=== PATIENT | female | born 1995 | race Caucasian/White ===

== ENCOUNTER 2021-09-17 20:09 | Emergency (ER) | payer MEDICAID, SELFPAY ==
[2021-09-17 21:14] LABS: Bilirubin Neg (Negative); Blood, Urine 250 (Negative); Clarity Clear (Clear); Glucose, Urine (Dipstick) Normal (Negative); Ketone, Urine Negative (Negative); Leukocyte Negative (Negative); Nitrite Negative (Negative); Protein, Urine (Dipstick) Negative (Neg-Trace); Urobilinogen Normal mg/dL (Less than 2)
[2021-09-17 21:21] LABS: Bacteria/HPF Rare-Few HPF (None Seen); RBC/HPF 21-50 HPF (0-3); Squamous Epithelial 0-3 HPF (0-3); WBC/HPF 0-3 HPF (0-3)
[2021-09-17 21:36] LABS: #Eosinphils 0.1 10x3/uL (0.0-0.5); #Monocytes 0.6 10x3/uL (0.0-1.1); #Neutrophils 7.4 10x3/uL (1.5-8.4); %Basophils 0.3 % (0.0-2.0); %Lymphocytes 24.7 % (18.0-47.0); %Monocytes 5.8 % (0.0-10.0); %Neutrophils 67.7 % (40.0-75.0); Hemoglobin 13.2 g/dL (12.0-15.5); Mean Corpuscular HGB CONC 34.7 g/dL (32.0-36.0); Mean Corpuscular Hemoglobin 29.7 pg (27.0-33.0); Mean Corpuscular Volume 85.6 fl (81.6-98.3); Mean Platelet Volume 10.6 fl (7.4-10.4); Platelet Count 220 10x3/uL (150-450); RBC Distribution Width 11.9 % (11.5-14.5); Red Blood Cell (RBC) Count 4.44 10x6/uL (3.90-5.03)
== END 2021-09-18 00:14 | disposition home or self-care (01) ==
LOC: CSHERS 20:09
DX: O20.0 Threatened abortion (principal); Z3A.01 Less than 8 weeks gestation of pregnancy
CPT/HCPCS: 36415; 76856; 81003; 81015; 84702; 85025; 86900; 86901

== ENCOUNTER 2021-12-25 18:40 | Emergency (ER) | payer MEDICAID, OTHER ==
[2021-12-25 20:15] LABS: Bilirubin Neg (Negative); Blood, Urine Negative (Negative); Clarity Clear (Clear); Glucose, Urine (Dipstick) Normal (Negative); Ketone, Urine Negative (Negative); Leukocyte Negative (Negative); Nitrite Negative (Negative); Protein, Urine (Dipstick) Negative (Neg-Trace); Specific Gravity, Urine 1.005 (1.005-1.030); Urobilinogen Normal mg/dL (Less than 2)
[2021-12-25 20:34] LABS: #Monocytes 0.5 10x3/uL (0.0-1.1); #Neutrophils 6.2 10x3/uL (1.5-8.4); %Basophils 0.1 % (0.0-2.0); %Eosinophils 0.3 % (0.0-6.0); %Lymphocytes 5.8 % (18.0-47.0); %Neutrophils 85.7 % (40.0-75.0); Hemoglobin 10.8 g/dL (12.0-15.5); Mean Corpuscular HGB CONC 34.5 g/dL (32.0-36.0); Mean Corpuscular Hemoglobin 28.6 pg (27.0-33.0); Mean Platelet Volume 10.5 fl (7.4-10.4); Platelet Count 174 10x3/uL (150-450); RBC Distribution Width 13.2 % (11.5-14.5); Red Blood Cell (RBC) Count 3.77 10x6/uL (3.90-5.03); White Blood Cell (WBC) Count 7.3 10x3/uL (3.5-10.5)
[2021-12-25 20:51] LABS: ALT (SGPT) 26 U/L (8-55); AST (SGOT) 28 U/L (5-34); Albumin 3.6 g/dL (3.5-5.0); Alkaline Phosphatase 58 U/L (40-110); Anion Gap 12 mmol/L (10-20); BUN (Urea Nitrogen) 5 mg/dL (7.0-18.7); Bilirubin, Total 0.2 mg/dL (0.2-1.2); Calc. Creatinine Clearance 0 mL/min (70-130); Calcium 9.1 mg/dL (7.8-10.44); Carbon Dioxide 23 mmol/L (22-29); Chloride 106 mmol/L (98-107); Estimated GFR 127; Globulin 2.8 g/dL (2.4-3.5); Glucose 84 mg/dL (70-105); Potassium 4.1 mmol/L (3.5-5.1); Protein, Total 6.4 g/dL (6.0-8.3); Sodium 137 mmol/L (136-145)
[2021-12-25] MEDS ORDERED: Acetaminophen 325 MG TAB ONE (21:04)
[2021-12-25 21:31] LABS: SARS-CoV-2 NAA Rapid Test DETECTED (NotDetected)
== END 2021-12-26 00:20 | disposition home or self-care (01) ==
LOC: CSHERS 18:40
DX: O98.512 Other viral diseases complicating pregnancy, second trimester (principal); U07.1 COVID-19; O99.891 Other specified diseases and conditions complicating pregnancy; R07.89 Other chest pain; Z3A.22 22 weeks gestation of pregnancy
CPT/HCPCS: 36415; 80053; 81003; 84484; 85025; 86900; 86901; 87081; 87430; 93005; 96360; 96361

== ENCOUNTER 2022-01-13 09:27 | Emergency (ER) | payer MEDICAID, OTHER ==
[2022-01-13] MEDS ORDERED: Acetaminophen 500 MG TAB ONE (10:12)
[2022-01-13 10:23] LABS: Bilirubin Neg (Negative); Blood, Urine Negative (Negative); Clarity Clear (Clear); Glucose, Urine (Dipstick) Normal (Negative); Ketone, Urine Negative (Negative); Leukocyte Negative (Negative); Nitrite Negative (Negative); Protein, Urine (Dipstick) Negative (Neg-Trace); Urobilinogen Normal mg/dL (Less than 2)
[2022-01-13 10:26] LABS: #Eosinphils 0.2 10x3/uL (0.0-0.5); #Monocytes 0.6 10x3/uL (0.0-1.1); #Neutrophils 7.4 10x3/uL (1.5-8.4); %Basophils 0.2 % (0.0-2.0); %Eosinophils 1.6 % (0.0-6.0); %Lymphocytes 17.8 % (18.0-47.0); %Monocytes 5.8 % (0.0-10.0); %Neutrophils 74.2 % (40.0-75.0); Hemoglobin 11.4 g/dL (12.0-15.5); Mean Corpuscular HGB CONC 34.4 g/dL (32.0-36.0); Mean Corpuscular Hemoglobin 28.6 pg (27.0-33.0); Mean Corpuscular Volume 83.2 fl (81.6-98.3); Platelet Count 236 10x3/uL (150-450); RBC Distribution Width 12.9 % (11.5-14.5); Red Blood Cell (RBC) Count 3.98 10x6/uL (3.90-5.03)
[2022-01-13 10:38] LABS: ALT (SGPT) 9 U/L (8-55); AST (SGOT) 12 U/L (5-34); Albumin 3.7 g/dL (3.5-5.0); Alkaline Phosphatase 72 U/L (40-110); Anion Gap 13 mmol/L (10-20); BUN (Urea Nitrogen) 5 mg/dL (7.0-18.7); Bilirubin, Total 0.3 mg/dL (0.2-1.2); Calc. Creatinine Clearance 0 mL/min (70-130); Calcium 9.1 mg/dL (7.8-10.44); Carbon Dioxide 24 mmol/L (22-29); Chloride 106 mmol/L (98-107); Estimated GFR 129; Globulin 2.7 g/dL (2.4-3.5); Glucose 98 mg/dL (70-105); Magnesium 1.6 mg/dL (1.6-2.6); Protein, Total 6.4 g/dL (6.0-8.3); Sodium 139 mmol/L (136-145)
== END 2022-01-13 10:57 | disposition home or self-care (01) ==
LOC: CSHERS 09:27
DX: O99.891 Other specified diseases and conditions complicating pregnancy (principal); R60.0 Localized edema; Z3A.23 23 weeks gestation of pregnancy
CPT/HCPCS: 36415; 80053; 81003; 83735; 85025; 99284

== ENCOUNTER 2022-03-12 12:03 | Day surgery (SDC) | payer OTHER ==
[2022-03-12 12:34] VITALS: BMI 45.4
[2022-03-12] MEDS ORDERED: hydrALAZINE 20 MG/ML VIAL SLOW IVP PRN (13:32)
[2022-03-12] MEDS ORDERED: Acetaminophen 500 MG TAB PO SCH (13:45)
== END 2022-03-12 13:55 | disposition home or self-care (01) ==
LOC: CSHLD/OP 12:03
PROVIDERS: ATTEND Obstetrics & Gynecology
DX: O9A.213 Injury, poisoning and certain other consequences of external causes complicating pregnancy, third trimester (principal); S39.012A Strain of muscle, fascia and tendon of lower back, initial encounter; X50.0XXA Overexertion from strenuous movement or load, initial encounter; Y92.009 Unspecified place in unspecified non-institutional (private) residence as the place of occurrence of the external cause; Z3A.32 32 weeks gestation of pregnancy

== ENCOUNTER 2022-04-16 12:00 | Inpatient (IN) | payer OTHER ==
[2022-04-15 12:52] LABS: #Eosinphils 0.1 10x3/uL (0.0-0.5); #Monocytes 0.5 10x3/uL (0.0-1.1); #Neutrophils 6.7 10x3/uL (1.5-8.4); %Basophils 0.2 % (0.0-2.0); %Eosinophils 1.2 % (0.0-6.0); %Lymphocytes 17.4 % (18.0-47.0); %Monocytes 5.5 % (0.0-10.0); %Neutrophils 75.1 % (40.0-75.0); Hemoglobin 12.8 g/dL (12.0-15.5); Mean Corpuscular HGB CONC 34.8 g/dL (32.0-36.0); Mean Corpuscular Hemoglobin 28.8 pg (27.0-33.0); Mean Corpuscular Volume 82.7 fl (81.6-98.3); Mean Platelet Volume 11.1 fl (7.4-10.4); Platelet Count 182 10x3/uL (150-450); RBC Distribution Width 13.6 % (11.5-14.5); Red Blood Cell (RBC) Count 4.45 10x6/uL (3.90-5.03); White Blood Cell (WBC) Count 8.9 10x3/uL (3.5-10.5)
[2022-04-15 13:26] LABS: SARS-CoV-2 NAA Rapid Test Not Detected (NotDetected); Syphilis Antibody Nonreactive (Nonreactive); Syphilis Antibody Index 0.04 S/CO (<1.00 Non-Reactive)
[2022-04-15 13:26] LABS: HBSAg Index 0.16 S/CO (0-0.99); Hep B Surf Ag Non-Reactive S/CO (NonReactive)
[2022-04-16] MEDS ORDERED: Bicitra 30 ML UDCUP PO PRN (14:51)
[2022-04-16] MEDS ORDERED: Butorphanol Tartrate 1 MG/ML VIAL SLOW IVP PRN (14:51)
[2022-04-16] MEDS ORDERED: Ondansetron PF 4 MG/2 ML Vial IVP PRN ×2 (14:51→20:20)
[2022-04-16] MEDS ORDERED: Promethazine HCl 25 MG/ML VIAL IM PRN (14:51)
[2022-04-16] MEDS ORDERED: hydrALAZINE 20 MG/ML VIAL SLOW IVP PRN ×2 (14:51→20:20)
[2022-04-16] MEDS ORDERED: Famotidine/PF 20 mg/2ml Vial SLOW IVP PRN (14:51)
[2022-04-16] MEDS ORDERED: CEFAZOLIN 2 GM in Sodium Chloride 0.9% 100 ML IVPB SCH (15:00)
[2022-04-16] MEDS ORDERED: Lactated Ringer's 1,000 ML IV SCH (15:00)
[2022-04-16 15:28] VITALS: BMI 47.7
[2022-04-16] MEDS ORDERED: Dexmedetomidine 200 MCG/2 ML VIAL ONE (15:42)
[2022-04-16] MEDS ORDERED: Dexamethasone 4 mg/ml Vial ONE (15:59)
[2022-04-16] MEDS ORDERED: Ondansetron PF 4 MG/2 ML Vial ONE (15:59)
[2022-04-16] MEDS ORDERED: Oxytocin 10 UNITS/ML VIAL ONE (16:00)
[2022-04-16] MEDS ORDERED: Ketorolac Tromethamine 30 MG/ML VIAL ONE (16:00)
[2022-04-16] MEDS ORDERED: PHENYLEPHRINE-NS 100 MCG/ML 10 ML SYRINGE ONE (16:03)
[2022-04-16] MEDS ORDERED: Phenylephrine 40 MG/NS 250 ML 250 ML ONE (16:03)
[2022-04-16] MEDS ORDERED: Phenylephrine 10 MG/ML VIAL ONE (16:04)
[2022-04-16] MEDS ORDERED: Metoclopramide HCl 10 MG/2 ML VIAL ONE (16:55)
[2022-04-16] MEDS ORDERED: Fentanyl 100 MCG/2 ML VIAL SLOW IVP PRN (17:29)
[2022-04-16] MEDS ORDERED: Meperidine HCl/PF 25 MG/ML VIAL SLOW IVP PRN (17:29)
[2022-04-16] MEDS ORDERED: Ondansetron HCl/PF 4 MG/2 ML Vial IVP PRN (17:29)
[2022-04-16] MEDS ORDERED: Ketorolac Tromethamine 30 MG/ML VIAL IVP SCH (17:30)
[2022-04-16] MEDS ORDERED: NS w/ Oxytocin 30 units 500 ML ONE (18:01)
[2022-04-16] MEDS ORDERED: Fentanyl 100 MCG/2 ML VIAL ONE (20:08)
[2022-04-16] MEDS ORDERED: Bisacodyl 10 MG SUPP PR PRN (20:20)
[2022-04-16] MEDS ORDERED: diphenhydrAMINE 25 MG CAP PO PRN (20:20)
[2022-04-16] MEDS ORDERED: Boostrix 0.5 ML (Tdap) VIAL (>/=7 yrs of age) IM ONE (20:20)
[2022-04-16] MEDS: Ferrous Sulfate 325 MG TAB PO SCH (21:28)
[2022-04-16] MEDS: Docusate 100 MG CAP PO SCH (21:28)
[2022-04-16] MEDS ORDERED: Ibuprofen 800 MG TAB PO SCH (22:00)
[2022-04-16] MEDS: Ketorolac Tromethamine 30 MG/ML VIAL IVP PRN (23:29)
[2022-04-17] MEDS: HYDROcodone/Acetaminophen 5/325 mg Tablet PO PRN ×6 (00:24→20:15)
[2022-04-17 04:48] LABS: Hemoglobin 10.9 g/dL (12.0-15.5); Mean Corpuscular HGB CONC 34.7 g/dL (32.0-36.0); Mean Corpuscular Volume 83.5 fl (81.6-98.3); Mean Platelet Volume 11.4 fl (7.4-10.4); Platelet Count 168 10x3/uL (150-450); RBC Distribution Width 13.7 % (11.5-14.5); Red Blood Cell (RBC) Count 3.76 10x6/uL (3.90-5.03); White Blood Cell (WBC) Count 9.8 10x3/uL (3.5-10.5)
[2022-04-17] MEDS: Ketorolac Tromethamine 30 MG/ML VIAL IVP PRN (06:09)
[2022-04-17] MEDS: Docusate 100 MG CAP PO SCH ×2 (08:22→20:17)
[2022-04-17] MEDS: Prenatal Vitamin 1 TAB PO SCH (08:22)
[2022-04-17] MEDS: Ferrous Sulfate 325 MG TAB PO SCH ×2 (09:17→21:24)
[2022-04-17] MEDS: Simethicone Chewable 80 MG TAB PO PRN ×2 (10:40→20:18)
[2022-04-17] MEDS ORDERED: Ketorolac Tromethamine 30 MG/ML VIAL IVP PRN (10:45)
[2022-04-17] MEDS ORDERED: Ibuprofen 800 MG TAB PO SCH (14:00)
[2022-04-17] MEDS: Ibuprofen 800 MG TAB PO PRN (20:17)
[2022-04-18] MEDS: HYDROcodone/Acetaminophen 5/325 mg Tablet PO PRN ×5 (00:54→22:08)
[2022-04-18] MEDS: Ibuprofen 800 MG TAB PO PRN ×3 (04:15→22:07)
[2022-04-18] MEDS: Simethicone Chewable 80 MG TAB PO PRN ×3 (04:16→17:45)
[2022-04-18] MEDS: Docusate 100 MG CAP PO SCH ×2 (07:15→22:09)
[2022-04-18] MEDS: Prenatal Vitamin 1 TAB PO SCH (07:15)
[2022-04-18] MEDS: Ferrous Sulfate 325 MG TAB PO SCH ×2 (07:16→22:12)
[2022-04-18] MEDS: Cyclobenzaprine 10 MG TAB PO PRN ×2 (16:04→22:24)
[2022-04-19] MEDS: HYDROcodone/Acetaminophen 5/325 mg Tablet PO PRN ×4 (03:52→12:47)
[2022-04-19] MEDS: Simethicone Chewable 80 MG TAB PO PRN ×3 (03:52→12:48)
[2022-04-19] MEDS: Ibuprofen 800 MG TAB PO PRN (05:11)
[2022-04-19 07:53] VITALS: BP 98/50; TEMP 97.9
[2022-04-19] MEDS: Ferrous Sulfate 325 MG TAB PO SCH (07:53)
[2022-04-19] MEDS: Prenatal Vitamin 1 TAB PO SCH (08:01)
[2022-04-19] MEDS: Cyclobenzaprine 10 MG TAB PO PRN (08:01)
[2022-04-19] MEDS: Docusate 100 MG CAP PO SCH (08:01)
[2022-04-22] MEDS ORDERED: Ibuprofen 800 MG TAB PO SCH (06:00)
== END 2022-04-19 12:55 | disposition home or self-care (01) | DRG 788 ==
LOC: CSHLD 14:36 → CSHPP 20:32
PROVIDERS: ADMIT Obstetrics & Gynecology; ATTEND Obstetrics & Gynecology
PROC: 10D00Z1 Extraction of Products of Conception, Low, Open Approach (ICD-10-PCS; principal; 2022-04-16)
DX: O34.211 Maternal care for low transverse scar from previous cesarean delivery (principal); Z3A.37 37 weeks gestation of pregnancy; Z37.0 Single live birth; Z20.822 Contact with and (suspected) exposure to COVID-19; O69.81X0 Labor and delivery complicated by cord around neck, without compression, not applicable or unspecified; E66.9 Obesity, unspecified; O99.214 Obesity complicating childbirth
CPT/HCPCS: 36415; 51702; 85025; 85027; 86780; 86850; 86900; 86901; 87340; J1100; J1885; J2370; J2405; J2590; J2765; J3010; U0002

== ENCOUNTER 2022-04-23 11:27 | Emergency (ER) | payer OTHER ==
[2022-04-23] MEDS ORDERED: Magnevist 469MG/ML 20 ML VIAL ONE (12:04)
[2022-04-23] MEDS ORDERED: Metoclopramide HCl 10 MG/2 ML VIAL ONE (12:21)
[2022-04-23] MEDS ORDERED: diphenhydrAMINE 50 MG/ML VIAL ONE (12:21)
[2022-04-23] MEDS ORDERED: Magnesium 2 GM/50 ML BAG (IN WATER) ONE (12:22)
[2022-04-23 12:24] LABS: #Eosinphils 0.2 10x3/uL (0.0-0.5); #Monocytes 0.4 10x3/uL (0.0-1.1); #Neutrophils 4.8 10x3/uL (1.5-8.4); %Basophils 0.4 % (0.0-2.0); %Eosinophils 2.3 % (0.0-6.0); %Monocytes 5.4 % (0.0-10.0); Hemoglobin 11.7 g/dL (12.0-15.5); Mean Corpuscular HGB CONC 34.9 g/dL (32.0-36.0); Mean Corpuscular Hemoglobin 28.7 pg (27.0-33.0); Mean Corpuscular Volume 82.3 fl (81.6-98.3); Mean Platelet Volume 10.5 fl (7.4-10.4); Platelet Count 214 10x3/uL (150-450); RBC Distribution Width 13.2 % (11.5-14.5); Red Blood Cell (RBC) Count 4.07 10x6/uL (3.90-5.03)
[2022-04-23 12:29] LABS: ALT (SGPT) 22 U/L (8-55); AST (SGOT) 22 U/L (5-34); Albumin 3.7 g/dL (3.5-5.0); Alkaline Phosphatase 92 U/L (40-110); Anion Gap 12 mmol/L (10-20); BUN (Urea Nitrogen) 15 mg/dL (7.0-18.7); Bilirubin, Total 0.3 mg/dL (0.2-1.2); Calc. Creatinine Clearance 0 mL/min (70-130); Calcium 9.4 mg/dL (7.8-10.44); Carbon Dioxide 28 mmol/L (22-29); Chloride 106 mmol/L (98-107); Estimated GFR 124; Glucose 73 mg/dL (70-105); Potassium 3.9 mmol/L (3.5-5.1); Protein, Total 6.7 g/dL (6.0-8.3); Sodium 142 mmol/L (136-145)
[2022-04-23 13:19] LABS: Bilirubin Neg (Negative); Blood, Urine 50 (Negative); Glucose, Urine (Dipstick) Normal (Negative); Ketone, Urine Negative (Negative); Leukocyte 25 (Negative); Nitrite Negative (Negative); Protein, Urine (Dipstick) Negative (Neg-Trace); Specific Gravity, Urine 1.005 (1.005-1.030); Urobilinogen Normal mg/dL (Less than 2)
[2022-04-23 13:34] LABS: Clarity Clear (Clear); RBC/HPF 0-3 HPF (0-3); Squamous Epithelial 0-3 HPF (0-3); WBC/HPF None Seen HPF (0-3)
[2022-04-23 13:35] LABS: Bacteria/HPF None Seen HPF (None Seen)
[2022-04-23] MEDS ORDERED: Fentanyl 100 MCG/2 ML VIAL ONE (13:41)
[2022-04-23] MEDS ORDERED: Ibuprofen 200 MG TAB ONE (16:52)
== END 2022-04-23 20:46 | disposition home or self-care (01) ==
LOC: CSHERS 11:27
DX: R51.9 Headache, unspecified (principal)
CPT/HCPCS: 70450; 70544; 70553; 80053; 81003; 81015; 85025; 96374; 96375; A9579; J1200; J2765; J3010; J3475

== ENCOUNTER 2022-04-26 18:53 | Emergency (ER) | payer OTHER ==
[2022-04-26 19:28] LABS: #Eosinphils 0.2 10x3/uL (0.0-0.5); #Monocytes 0.4 10x3/uL (0.0-1.1); #Neutrophils 5.3 10x3/uL (1.5-8.4); %Basophils 0.4 % (0.0-2.0); %Eosinophils 2.8 % (0.0-6.0); %Lymphocytes 25.9 % (18.0-47.0); %Monocytes 5.4 % (0.0-10.0); %Neutrophils 65.1 % (40.0-75.0); Hemoglobin 12.8 g/dL (12.0-15.5); Mean Corpuscular HGB CONC 35.2 g/dL (32.0-36.0); Mean Corpuscular Hemoglobin 28.6 pg (27.0-33.0); Mean Corpuscular Volume 81.3 fl (81.6-98.3); Mean Platelet Volume 10.7 fl (7.4-10.4); Platelet Count 270 10x3/uL (150-450); RBC Distribution Width 12.8 % (11.5-14.5); Red Blood Cell (RBC) Count 4.48 10x6/uL (3.90-5.03); White Blood Cell (WBC) Count 8.1 10x3/uL (3.5-10.5)
[2022-04-26] MEDS ORDERED: Ketorolac Tromethamine 30 MG/ML VIAL ONE (19:29)
[2022-04-26 19:41] LABS: PTT 27.1 sec (22.0-33.0); Prothrombin Time 10.5 sec (9.5-12.1)
[2022-04-26 19:47] LABS: ALT (SGPT) 29 U/L (8-55); AST (SGOT) 24 U/L (5-34); Albumin 4.1 g/dL (3.5-5.0); Alkaline Phosphatase 96 U/L (40-110); Anion Gap 15 mmol/L (10-20); BUN (Urea Nitrogen) 18 mg/dL (7.0-18.7); Bilirubin, Total 0.3 mg/dL (0.2-1.2); Calc. Creatinine Clearance 0 mL/min (70-130); Calcium 9.6 mg/dL (7.8-10.44); Carbon Dioxide 24 mmol/L (22-29); Chloride 105 mmol/L (98-107); Estimated GFR 113; Globulin 3.1 g/dL (2.4-3.5); Glucose 112 mg/dL (70-105); Magnesium 1.9 mg/dL (1.6-2.6); Potassium 3.6 mmol/L (3.5-5.1); Protein, Total 7.2 g/dL (6.0-8.3); Sodium 140 mmol/L (136-145)
[2022-04-26 19:55] LABS: Bilirubin Neg (Negative); Blood, Urine 250 (Negative); Clarity Clear (Clear); Glucose, Urine (Dipstick) Normal (Negative); Ketone, Urine Negative (Negative); Leukocyte 100 (Negative); Nitrite Negative (Negative); Protein, Urine (Dipstick) Negative (Neg-Trace); Urobilinogen Normal mg/dL (Less than 2); pH, Urine 6.5 (5.0-9.0)
[2022-04-26 20:08] LABS: Bacteria/HPF 1+ HPF (None Seen); RBC/HPF 0-3 HPF (0-3); Squamous Epithelial 0-3 HPF (0-3)
[2022-04-26] MEDS ORDERED: Cephalexin 250 MG CAP ONE (21:21)
== END 2022-04-26 21:27 | disposition home or self-care (01) ==
LOC: CSHERS 18:53
DX: N39.0 Urinary tract infection, site not specified (principal); R07.9 Chest pain, unspecified; R51.9 Headache, unspecified; I10 Essential (primary) hypertension; Z39.2 Encounter for routine postpartum follow-up
CPT/HCPCS: 71045; 80053; 81003; 81015; 82570; 83615; 83735; 84156; 84484; 85025; 85610; 85730; 87086; 93005; 96374; J1885

== ENCOUNTER 2022-11-30 22:11 | Emergency (ER) | payer OTHER ==
[2022-12-01] MEDS ORDERED: Morphine 4 MG/ML VIAL ONE (01:04)
== END 2022-12-01 01:55 | disposition home or self-care (01) ==
LOC: CSHERS 22:11
DX: M62.830 Muscle spasm of back (principal); I10 Essential (primary) hypertension
CPT/HCPCS: 96372; 99283; J2270

== ENCOUNTER 2022-12-03 21:50 | Emergency (ER) | payer OTHER ==
[2022-12-03] MEDS ORDERED: methylPREDNISolone Sod Succ/PF 125 MG/2 ML VIAL ONE (22:50)
[2022-12-03] MEDS ORDERED: diphenhydrAMINE 50 MG/ML VIAL ONE (22:50)
[2022-12-03] MEDS ORDERED: Metoclopramide HCl 10 MG/2 ML VIAL ONE (22:50)
[2022-12-03] MEDS ORDERED: Ketorolac Tromethamine 30 MG/ML VIAL ONE (22:51)
[2022-12-03] MEDS ORDERED: Magnesium 2 GM/50 ML BAG (IN WATER) ONE (22:51)
[2022-12-03 23:13] LABS: #Eosinphils 0.3 10x3/uL (0.0-0.5); #Monocytes 0.5 10x3/uL (0.0-1.1); %Basophils 0.4 % (0.0-2.0); %Eosinophils 3.9 % (0.0-6.0); %Lymphocytes 33.2 % (18.0-47.0); %Monocytes 7.3 % (0.0-10.0); %Neutrophils 54.8 % (40.0-75.0); Hematocrit 38.1 % (34.9-44.5); Hemoglobin 13.2 g/dL (12.0-15.5); Mean Corpuscular HGB CONC 34.6 g/dL (32.0-36.0); Mean Corpuscular Hemoglobin 28.5 pg (27.0-33.0); Mean Corpuscular Volume 82.3 fl (81.6-98.3); Mean Platelet Volume 10.4 fl (7.4-10.4); Platelet Count 215 10x3/uL (150-450); RBC Distribution Width 12.5 % (11.5-14.5); Red Blood Cell (RBC) Count 4.63 10x6/uL (3.90-5.03); White Blood Cell (WBC) Count 7.4 10x3/uL (3.5-10.5)
[2022-12-03 23:28] LABS: ALT (SGPT) 47 U/L (8-55); AST (SGOT) 41 U/L (5-34); Albumin 4.1 g/dL (3.5-5.0); Alkaline Phosphatase 75 U/L (40-110); Anion Gap 13 mmol/L (10-20); BUN (Urea Nitrogen) 15 mg/dL (7.0-18.7); Bilirubin, Total 0.4 mg/dL (0.2-1.2); Calc. Creatinine Clearance 0 mL/min (70-130); Calcium 9.9 mg/dL (7.8-10.44); Carbon Dioxide 28 mmol/L (22-29); Chloride 102 mmol/L (98-107); Estimated GFR 76; Globulin 2.9 g/dL (2.4-3.5); Glucose 92 mg/dL (70-105); Sodium 139 mmol/L (136-145)
[2022-12-03 23:30] LABS: BHCG - Serum Negative (NEGATIVE); Pregs Control Background? CLEAR/WHITE (CLR/WHITE); Pregs Control Bar Appear? YES (CONTROL BAR)
== END 2022-12-04 00:55 | disposition home or self-care (01) ==
LOC: CSHERS 21:50
DX: R51.9 Headache, unspecified (principal); I10 Essential (primary) hypertension
CPT/HCPCS: 36415; 70450; 80053; 84703; 85025; 96365; 96375; J1200; J1885; J2765; J2930; J3475